=== PATIENT | male | born 1945 | race Caucasian/White ===

== ENCOUNTER 2018-10-16 09:09 | Emergency (ER) | payer MEDICARE, OTHER ==
[~2018-10-16] VITALS: Ht 177.8 cm; Wt 97.7 kg
[2018-10-16 09:13] VITALS: Ht 177.8 cm; Wt 97.7 kg
[2018-10-16] MEDS ORDERED: MOBIC7.5 MG (09:16)
[2018-10-16] MEDS ORDERED: PRAVACHOL20 MG PO (09:16)
[2018-10-16 10:29] LABS: BASOPHILS 0.1 % (0-2); EOSINOPHILS 2.6 % (0-7); HEMATOCRIT 42.7 % (42.0-54.0); IMMATURE GRANULOCYTES 0.3 % (0-5); LYMPHOCYTES 28.4 % (15-50); MCH 32.8 pg (26.0-34.0); MCHC 35.1 g/dL (31.0-37.0); MCV 93.4 fL (80.0-100.0); MEAN PLATELET VOLUME 10.3 fL (7.4-10.4); MONOCYTES 4.7 % (2-11); NEUTROPHILS 63.9 % (40-80); PLATELET COUNT 139 10x3/uL (130-400); RBC 4.57 10x6/uL (4.20-6.10); RDW 12.1 % (11.5-14.5); WBC 7.4 10x3/uL (4.8-10.8)
[2018-10-16 10:33] LABS: ALBUMIN 3.6 g/dL (3.4-5.0); ANION GAP 14.1 mmol/L (8-16); BILIRUBIN - TOTAL 0.74 mg/dL (0.2-1.3); CARBON DIOXIDE 24.1 mmol/L (21.0-32.0); CREATININE - SERUM 1.1 mg/dL (0.6-1.3); POTASSIUM - SERUM 4.2 mmol/L (3.5-5.1)
[2018-10-16] MEDS ORDERED: AUGMENTIN 875-11 TAB PO (11:06)
[2018-10-16] MEDS ORDERED: HYDROCODON-ACE1 EA10 PO (11:10)
[2018-10-16 12:11] VITALS: BP 179/100
== END 2018-10-16 11:50 | disposition home or self-care (01) ==
LOC: D.ER 09:09
PROVIDERS: Family Medicine
DX: T25.222A Burn of second degree of left foot, initial encounter (principal); T31.0 Burns involving less than 10% of body surface; X08.8XXA Exposure to other specified smoke, fire and flames, initial encounter